=== PATIENT | female | born 1935 | race Hispanic/Latino ===

== ENCOUNTER 2024-10-13 12:08 | Emergency (ER) | payer OTHER ==
[2024-10-13 12:40] LABS: Absolute Eosinophils 0.2 K/uL (0-0.5); Absolute Monocytes 0.5 K/uL (0.1-1.3); Absolute Neutrophil 3.3 K/uL (1.8-8.0); Basophils % 0.7 % (0-1.3); Eosinophils % 2.2 % (0-4.4); Hematocrit 46.2 % (36.0-45.0); Lymphocytes % 43.5 % (15.3-44.8); MCH 30.9 pg (27.0-35.0); MCHC 32.5 g/dL (32.0-36.0); Monocytes % 6.7 % (3.3-12.3); Neutrophils % 46.9 % (41.7-73.7); Platelets 197 thou/uL (152-406); RBC Red Blood Cell Count 4.87 M/uL (3.86-4.86); Red Cell Distribution Width 14.9 % (12.1-15.2)
[2024-10-13 12:46] LABS: PT Prothrombin Time 11.4 SECONDS (9.4-12.5); PTT, Activated Partial Thromb 35.1 SECONDS (24.3-36.9); Protime INR 1.02
--- NOTE | 2024-10-13 13:16 | RAD REPORT ---
EXAMINATION: ONE VIEW CHEST XR CLINICAL INDICATION: Female, 89 years old.,code stroke TECHNIQUE: Frontal chest projection is submitted. Examination is limited by patient positioning and t echnique. COMPARISON: No prior exam. FINDINGS: The lungs are somewhat hypoinflated, and clear. No pneumothorax or sizable effusion. The heart is no rmal in size. Tortuosity of the thoracic aorta. IMPRESSION: No acute intrathoracic abnormalities.
[2024-10-13] MEDS ORDERED: DIAZEPAM 2 MG TABLET ONE (13:54)
--- NOTE | 2024-10-13 14:00 | RAD REPORT ---
EXAM: CT Ct Stroke Brain Wo Cont HISTORY: STROKE ALERT COMPARISON: None TECHNIQUE: Multiple contiguous axial images were obtained for a CT of the brain without contrast. Sag ittal and coronal reformats were performed. One or more of the following dose reduction techniques were used: Automated exposure control, adjus tment of the mA and kV according to patient size, and iterative reconstruction. Unless otherwise specified, incidental findings do not require dedicated imaging follow-up. FINDINGS: No evidence of hydrocephalus, intracranial hemorrhage, or extra-axial fluid collection. Extensive encephalomalacia involving the left cerebral hemisphere within the left MCA territory, most pronounced along the left parietotemporal region. Ex vacuo left lateral ventricle dilation. Near confluent reticular and deep white matter hypodensities otherwise, nonspecific, but suggestive o f chronic small vessel ischemic changes. The calvarium is intact. The visualized paranasal sinuses and mastoid air cells are essentially clear . 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 No other acute intracranial abnormality. Deep white matter signal abnormalities as above, nonspecific , most suggestive of chronic small vessel ischemic changes. THIS REPORT CONTAINS FINDINGS THAT MAY BE CRITICAL TO PATIENT CARE. The findings were verbally commun icated via telephone to Patricio Lorenzo MD on 10/13/2024 1:53 PM.
--- NOTE | 2024-10-13 14:05 | RAD REPORT ---
EXAMINATION: CTA HEAD CLINICAL INDICATION: Female, 89 years old. STROKE ALERT TECHNIQUE: Axial CT images were obtained through the head after intravenous contrast utilizing angiog raphic protocol with 3D post-processing (maximum intensity projection images, volume rendered images and/or shaded surface rendered images). One or more of the following dose reduction technique s were used: Automated exposure control, adjustment of the mA and/or kV according to patient size, and/or iterative reconstruction. Unless otherwise specified, incidental findings do not require dedic ated imaging follow-up. COMPARISON: No prior exam. FINDINGS: ICA: The petrous, cavernous, and supraclinoid segments of the bilateral internal carotid arteries are normal. LAKESHA: Anterior cerebral arteries are normal bilaterally. The anterior communicating artery is patent. MCA: Middle cerebral arteries are normal on the right with patent proximal branches. Focal mild narro wing and luminal irregularity along the most distal left M1, with diminutive appearance of the left M1 branches, with no evidence of focal occlusion. M[employer]ER: Posterior cerebral arteries are normal bilaterally. Vertebrobasilar: The vertebral arteries are patent. The basilar artery is normal in appearance. 3D images confirm these findings. IMPRESSION: No evidence of large vessel occlusion or critical stenosis. Chronic appearing findings as above. THIS REPORT CONTAINS FINDINGS THAT MAY BE CRITICAL TO PATIENT CARE. The findings were verbally commun icated via telephone to Patricio Lorenzo MD on 10/13/2024 1:53 PM.
--- NOTE | 2024-10-13 14:10 | RAD REPORT ---
EXAMINATION: CT Neck Angio CLINICAL INDICATION: Female, 89 years old. [facility] MAIN code stroke Bed Name: 6 TECHNIQUE: Axial CT images were obtained from the aortic arch to the skull base after intravenous con trast utilizing angiographic protocol. Multiplanar reformats, as well as 3D post-processing (maximum intensity projection images, volume rendered images and/or shaded surface rendered images) w ere generated and reviewed. One or more of the following dose reduction techniques were used: Automated exposure control, adjustment of the mA and/or kV according to patient size, and/or iterativ e reconstruction. Unless otherwise specified, incidental findings do not require dedicated imaging follow-up. COMPARISON: Stroke workup CTs of the same day FINDINGS: AORTA: The imaged aortic arch is normal. Normal three-vessel configuration of the arch. Predominantly noncalcified atherosclerotic plaque along the proximal left subclavian artery, results in mild luminal stenosis CCA: No artifact The common carotid arteries are patent and normal in caliber. ICA/ECA: Bilateral internal and external carotid arteries are patent. There is no significant interna l carotid artery stenosis. VERTEBRAL: The cervical vertebral arteries are patent to the skull base. Vertebral arteries are codom inant. SOFT TISSUE: No significant neck soft tissue abnormalities. The visualized lung apices are clear. 3D images confirm these findings. IMPRESSION: No significant flow abnormality of the neck vessels is identified. Mild focal narrowing of the proxim al left subclavian artery. NASCET criteria used to quantify ICA stenosis, with the following grading scheme: Mild 0-49% stenosis Moderate 50-69% stenosis Severe 70-99% stenosis Reference: [place] Symptomatic Carotid Endarterectomy Trial Collaborators; Hesham LARA, Azra HARPER, Evgeny RB, et al. Beneficial effect of carotid endarterectomy in symptomatic patients with high-grade carotid stenosis. N Engl J Med. 1990Jun 23;325(7):445-53.
[2024-10-13 14:30] LABS: Anion Gap 5.3 mEq/L (5.0-15.0); Potassium 3.3 mEq/L (3.5-5.1); Troponin High Sensitivity 13.4 pg/mL (<58.9)
--- NOTE | 2024-10-13 15:44 | RAD REPORT ---
EXAMINATION: MRI BRAIN WITHOUT CONTRAST CLINICAL INDICATION: Female, 89 years old.[facility] MAIN N STROKE ALERT Bed Name: 6 TECHNIQUE: Multiplanar multisequence MR images of the brain were obtained without intravenous contras t. Unless otherwise specified, incidental findings do not require dedicated imaging follow-up. COMPARISON: Noncontrast head CT and CT angiogram of the same day FINDINGS: INTRACRANIAL: Midline structures are unremarkable. Diffusion-weighted images show no acute or early subacute infarction. 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 The ventricles are stable in caliber with ex vacuo dilation of the left lateral ventricle particularly at the trigone. Confluent o ther interventricular and deep white matter signal abnormalities bilaterally, most suggestive of chronic small vessel ischemic changes. Atrophic changes of the left cerebral peduncle, midbrain, and calvin, compatible with Wallerian degeneration. There is no mass effect or midline shift. No abnormal extraaxial fluid collection. VASCULATURE: Normal signal voids in the larger intracranial arteries and dural venous sinuses. SINUSES: The paranasal sinuses and mastoid air cells are predominantly clear. BONE: The marrow signal pattern is within normal limits. IMPRESSION: Acute intracranial process. Stable sequelae of remote ischemia in the left MCA territory as above.
[2024-10-13] MEDS ORDERED: NA CHLORIDE 0.9% 1,000 ML ONE (16:01)
[2024-10-13 17:17] LABS: Specific Gravity 1.009 (1.005-1.030); Sqamous Epithelial None Seen /HPF (None Seen); Urine Bacteria None Seen /HPF (<20); Urine Bilirubin NEGATIVE (Negative); Urine Blood Negative (Negative); Urine Clarity Clear (Clear); Urine Color Colorless (Yellow); Urine Culture Reflex Order NOT NEEDED; Urine Glucose NEGATIVE (Negative); Urine Ketones NEGATIVE (Negative); Urine Microscopic Reflex YN ORDER UMIC; Urine Nitrite NEGATIVE (Negative); Urine Protein NEGATIVE (Negative); Urine RBC <5 /HPF (None Seen); Urine Urobilinogen Normal (Normal); Urine WBC <5 /HPF (<5); Urine pH 7.5 (5.0-7.0)
--- NOTE | 2024-10-13 17:46 | ER ---
Nurse's Notes [facility] Name: Lisa Mane Age: 89 yrs Sex: Female : 1935 Arrival Date: 10/13/2024 Time: 12:08 Bed 6 Private MD: Diagnosis: Muscle weakness (generalized);Dehydration Presentation: 10/13 12:16 Chief complaint: EMS states: they were called to [facility] for a patient complaining ap3 of lack of vision in the right eye. Coronavirus screen: At this time, the client does not indicate any symptoms associated with coronavirus-19. Ebola Screen: No symptoms or risks identified at this time. Initial Sepsis Screen: Does the patient meet any 2 criteria? No. Patient's initial sepsis screen is negative. Does the patient have a suspected source of infection? No. Patient's initial sepsis screen is negative. Risk Assessment: Do you want to hurt yourself or someone else? Patient reports no desire to harm self or others. Onset of symptoms is unknown. 12:16 Method Of Arrival: EMS: [facility] ap3 12:16 Acuity: DONTE 2 ap3 Triage Assessment: 12:18 General: Appears in no apparent distress. Behavior is calm, cooperative. EENT: Reports ap3 abnormal vision in right eye. Neuro: Level of Consciousness is awake, alert, obeys commands, Oriented to person, place, Weakness in right arm(s) leg(s) from previous stroke. Cardiovascular: Patient's skin is warm and dry. Respiratory: Airway is patent Respiratory effort is even, unlabored, Respiratory pattern is regular, symmetrical. Historical: - Allergies: 12:18 No Known Allergies; ap3 - PMHx: 12:18 Hypercholesterolemia; Depressive disorder; Hypertensive disorder; Hypothyroidism; ap3 restless leg syndrome; Osteoporosis; cognitive communication deficit; expressive language disorder; - Immunization history:: Adult Immunizations unknown. - Infectious Disease History:: Denies. - Social history:: Smoking status: unknown. - Family history:: not pertinent. - Hospitalizations: : No recent hospitalization is reported. Screenin:21 Abuse screen: Denies threats or abuse. Nutritional screening: No deficits noted. ap3 Tuberculosis screening: No symptoms or risk factors identified. 13:03 [place] Swallow Protocol Brief Cognitive Screen What is your name? Normal, Where are you ap3 right now? Normal, What year is it? Normal. Oral Mechanism Examination Facial Symmetry: Normal, Motion: Normal, Lip Closure: Normal, Oral Mechanism Result: Normal. 3 oz Water Swallow Challenge: Pt able to drink all water without stopping, coughing, choking or throat clearing: Yes Result: SAMANTHA MALLOY Notified: Patricio Lorenzo MD. 17:12 [facility] ED Fall Risk Assessment (Adult) History of falling in the last 3 months, ph including since admission Yes- fall prone (multiple falls) (3 pts) Confusion or Disorientation Yes (5 pts) Intoxicated or Sedated No (0 pts) Impaired Gait Yes (1 pt) Mobility Assist Device Used Yes (1 pt) Altered Elimination Score/Fall Risk Level 3 or more points = High Risk Oriented to surroundings, Maintained a safe environment, Hourly rounding (assess needs \T\ fall precautionary measures) done, Used ambulatory aids as needed (educated on \T\ assisted with). Assessment: 14:03 General: daughter at bedside reports patient was complaining of vision changes and ap3 dizziness yesterday, 10/12/24, at approx 1730 when she was visiting the patient in her facility. . 15:11 Reassessment: Patient and/or family updated on plan of care and expected duration. Pain ap3 level reassessed. Patient is alert, oriented x 3, equal unlabored respirations, skin warm/dry/pink. 19:10 General: Appears in no apparent distress. Behavior is calm, cooperative. Pain: Denies al5 pain. Neuro: Level of Consciousness is awake, alert, obeys commands, Oriented to baseline. Cardiovascular: Patient's skin is warm and dry. Respiratory: Airway is patent Respiratory effort is even, unlabored, Respiratory pattern is regular, symmetrical. GI: No deficits noted. : No signs and/or symptoms were reported regarding the genitourinary system. EENT: No signs and/or symptoms were reported regarding the EENT system. Derm: No signs and/or symptoms reported regarding the dermatologic system. Musculoskeletal: right sided weakness from previous stroke. Vital Signs: 12:16 BP 183 / 81; Pulse 77; Resp 18; Pulse Ox 98% on R/A; Weight 61.5 kg; ap3 12:49 BP 172 / 81; Pulse 62; Pulse Ox 97% on R/A; ap3 15:11 BP 160 / 73; Pulse 60; Resp 17; Pulse Ox 95% on R/A; ap3 19:00 BP 160 / 76; Pulse 80; Resp 16; Pulse Ox 95% on R/A; al5 ED Course: 12:16 Patient arrived in ED. rn 12:16 Patricio Lorenzo MD is Attending Physician. rn 12:16 Yenifer Long, JER is Primary Nurse. ap3 12:18 Triage completed. ap3 12:21 Arm band placed on right wrist. ap3 12:21 Patient has correct armband on for positive identification. Bed in low position. Call ap3 light in reach. Side rails up X2. Provided Education on: call light education. Client placed on continuous cardiac and pulse oximetry monitoring. NIBP monitoring applied. cook chief on. Pulse ox on. NIBP on. Sitter at bedside. 12:48 Initial lab(s) drawn, by me, sent to lab. EKG done, by ED staff, reviewed by Patricio Lorenzo MD. Inserted saline lock: 22 gauge in right forearm, using aseptic technique. Blood collected. Flushed with 10 mL NS. 13:00 Stroke CXR 1 View In Process Unspecified. EDMS 13:44 CT Head Angio In Process Unspecified. EDMS 13:44 CT Neck Angio In Process Unspecified. EDMS 13:44 CT Stroke Brain w/o Contrast In Process Unspecified. EDMS 14:42 MRI - Brain Wo Cont In Process Unspecified. EDMS 17:11 Speci-cath kit inserted, using sterile technique, 14 Fr., returned clear yellow urine. ph Patient tolerated poorly. 17:13 No provider procedures requiring assistance completed. ph 17:19 IV discontinued, intact, bleeding controlled, No redness/swelling at site. Pressure ph dressing applied. Administered Medications: 14:04 Drug: Diazepam PO 2 mg PO once Route: PO; ap3 16:04 Follow up: Response: No adverse reaction ap3 16:03 Drug: NS 0.9% IV 500 ml 500 ml IV at 1 bolus once; to be given as a bolus over 30 ap3 minutes Volume: 500 ml; Route: IV; Rate: 1 bolus; Site: right forearm; 16:35 Follow up: Response: No adverse reaction; IV Status: Completed infusion; IV Intake: ph 500ml Medication: 17:13 VIS not applicable for this client. ph Intake: 16:35 IV: 500ml; Total: 500ml. ph Outcome: 17:44 Discharge ordered by . rn 19:11 Discharged to detention. patient taken back to detention with daughter with al5 discharge instructions. report called back to detention prior to shift change 19:11 Condition: good 19:11 Discharge instructions given to family, Instructed on discharge instructions, follow up and referral plans. Demonstrated understanding of instructions, follow-up care, 19:13 Patient left the ED. al5 Signatures: Dispatcher [employer] EDMS Patricio Lorenzo MD MD rn Hall, Patricia RN RN ph [facility], JER Street RN ap3 Yenifer Hedrick RN RN al5 Corrections: (The following items were deleted from the chart) 17:20 17:19 Condition: good ph ph 17:20 17:19 Discharged to home ambulatory, with family, ph ph 17:20 17:19 Discharge instructions given to patient, Instructed on discharge instructions, ph follow up and referral plans. medication usage, Demonstrated understanding of instructions, follow-up care, medications, Prescriptions given X 1, ph
--- NOTE | 2024-10-13 17:46 | EDPHYS ---
Physician Documentation [facility] Name: Lisa Mane Age: 89 yrs Sex: Female : 1935 Arrival Date: 10/13/2024 Time: 12:08 Bed 6 Private MD: ED Physician Patricio Lorenzo HPI: 10/13 15:34 This 89 yrs old Female presents to ER via EMS with complaints of Vision rn Problem, confusion. 15:34 The patient presents with confusion, decreased responsiveness. Onset: The rn symptoms/episode began/occurred yesterday. Associated signs and symptoms: Pertinent negatives: abdominal pain, chest pain, headache, seizure, shortness of breath. Current symptoms: In the emergency department the patient's symptoms are unchanged from the initial presentation. The patient has not experienced similar symptoms in the past. The patient has not recently seen a physician. [facility] from [facility], report was that she was having vision trouble since yesterday. Patient reports that she has had vision trouble out of her right eye for some time and this is not a new problem. 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 No trauma or fall. No fever or chills. No chest pain or abdominal pain. Patient states she feels okay. Family confirms that was seen yesterday and symptoms of dizziness and lightheaded were noted yesterday.. Historical: - Allergies: 12:18 No Known Allergies; ap3 - PMHx: 12:18 Hypercholesterolemia; Depressive disorder; Hypertensive disorder; Hypothyroidism; ap3 restless leg syndrome; Osteoporosis; cognitive communication deficit; expressive language disorder; - Immunization history:: Adult Immunizations unknown. - Infectious Disease History:: Denies. - Social history:: Smoking status: unknown. - Family history:: not pertinent. - Hospitalizations: : No recent hospitalization is reported. ROS: 15:34 Constitutional: Negative for fever, chills, and weight loss, Eyes: Negative for injury, rn pain, redness, and discharge, Neck: Negative for injury, pain, and swelling, Cardiovascular: Negative for chest pain, palpitations, and edema, Respiratory: Negative for shortness of breath, cough, wheezing, and pleuritic chest pain, Abdomen/GI: Negative for abdominal pain, nausea, vomiting, diarrhea, and constipation, Back: Negative for injury and pain, MS/Extremity: Negative for injury and deformity, Skin: Negative for injury, rash, and discoloration, Neuro: Negative for headache, and seizure, Exam: 15:34 Constitutional: This is a well developed, well nourished patient who is awake, alert, rn and in no acute distress. Head/Face: Normocephalic, atraumatic. Eyes: Bilateral cataracts, pupils equally round and reactive to light ENT: Dry mucous membranes Cardiovascular: Regular rate and irregular rhythm. No pulse deficits. Respiratory: No increased work of breathing, no retractions or nasal flaring. Abdomen/GI: Soft, non-tender MS/ Extremity: Pulses equal, no cyanosis. Neurovascular intact. Full, normal range of motion. Equal circumference. Neuro: Awake and alert, GCS 15, very difficult to understand secondary to dysphasia from previous stroke 16:03 ECG was reviewed by the Attending Physician. rn Vital Signs: 12:16 BP 183 / 81; Pulse 77; Resp 18; Pulse Ox 98% on R/A; Weight 61.5 kg; ap3 12:49 BP 172 / 81; Pulse 62; Pulse Ox 97% on R/A; ap3 15:11 BP 160 / 73; Pulse 60; Resp 17; Pulse Ox 95% on R/A; ap3 19:00 BP 160 / 76; Pulse 80; Resp 16; Pulse Ox 95% on R/A; al5 MDM: 12:16 Medical Screening Exam initiated rn 13:51 ED course: Last known normal per facility and family was last night prior to going to rn bed.. 13:53 ED course: Dr. Deleon called, states CT head negative for acute infarct or LVO.. rn 17:41 Differential Diagnosis: CVA, electrolyte abnormality, hypoglycemia, pneumonia, UTI, rn volume depletion. Data reviewed: vital signs, nurses notes, lab test result(s), EKG, radiologic studies, CT scan, MRI, and as a result, I will discharge patient. Counseling: I had a detailed discussion with the patient and/or guardian regarding the historical points, exam findings, and any diagnostic results supporting the discharge/admit diagnosis, lab results, radiology results, the need for outpatient follow up, to return to the emergency department if symptoms worsen or persist or if there are any questions or concerns that arise at home. Response to treatment: the patient's symptoms have markedly improved after treatment, and as a result, I will discharge patient. Special discussion: I discussed with the patient/guardian in detail that at this point there is no indication for admission to the hospital. It is understood, however, that if the symptoms persist or worsen the patient needs to return immediately for re-evaluation. ED course: Patient improved, MRI negative, CT angiograms negative for LVO or stroke. No UTI. Labs otherwise unremarkable for acute pathology. Will discharge home with return precautions.. 10/13 12:16 Order name: Basic Metabolic Panel; Complete Time: 14:56 rn 10/13 12:16 Order name: CBC with Diff; Complete Time: 13:24 rn 10/13 12:16 Order name: High Sensitivity Troponin; Complete Time: 14:56 rn 10/13 12:16 Order name: Protime (+inr); Complete Time: 13:24 rn 10/13 12:16 Order name: Ptt, Activated; Complete Time: 13:24 rn 10/13 14:03 Order name: CREATININE WHOLE BLOOD; Complete Time: 14:17 EDMS 10/13 15:49 Order name: Urinalysis w/ reflexes; Complete Time: 17:18 rn 10/13 12:16 Order name: CT Head Angio; Complete Time: 14:17 rn 10/13 12:16 Order name: CT Neck Angio; Complete Time: 14:17 rn 10/13 12:16 Order name: CT Stroke Brain w/o Contrast; Complete Time: 14:17 rn 10/13 12:16 Order name: Stroke CXR 1 View; Complete Time: 13:24 rn 10/13 12:16 Order name: MRI - Brain Wo Cont; Complete Time: 15:49 rn 10/13 12:16 Order name: Accucheck; Complete Time: 13:36 rn 10/13 12:16 Order name: Cardiac monitoring; Complete Time: 12:22 rn 10/13 12:16 Order name: EKG - Nurse/Tech; Complete Time: 12:49 rn 10/13 12:16 Order name: IV Saline Lock; Complete Time: 12:49 rn 10/13 12:16 Order name: Labs collected and sent; Complete Time: 12:49 rn 10/13 12:16 Order name: NPO; Complete Time: 12:22 rn 10/13 12:16 Order name: O2 Per Protocol; Complete Time: 12:22 rn 10/13 12:16 Order name: O2 Sat Monitoring; Complete Time: 12:22 rn 10/13 12:16 Order name: Stroke Swallow Screen; Complete Time: 13:03 rn 10/13 13:10 Order name: Labs - recollect needed: recollect green top; Complete Time: 14:04 bd EC:03 Rate is 64 beats/min. Rhythm is irregularly irregular. QRS [place] is Normal. PA interval rn is normal. QRS interval is normal. QT interval is normal. No Q waves. T waves are Normal. No ST changes noted. Clinical impression: Atrial Fibrillation. Interpreted by me. Reviewed by me. Administered Medications: 14:04 Drug: Diazepam PO 2 mg PO once Route: PO; ap3 16:04 Follow up: Response: No adverse reaction ap3 16:03 Drug: NS 0.9% IV 500 ml 500 ml IV at 1 bolus once; to be given as a bolus over 30 ap3 minutes Volume: 500 ml; Route: IV; Rate: 1 bolus; Site: right forearm; 16:35 Follow up: Response: No adverse reaction; IV Status: Completed infusion; IV Intake: ph 500ml Disposition Summary: 10/13/24 17:44 Discharge Ordered Notes: Location: Home rn Problem: new rn Symptoms: have improved rn Condition: Stable rn Diagnosis - Muscle weakness (generalized) rn - Dehydration rn Followup: rn - With: Private Physician - When: As needed - Reason: Recheck today's complaints, Re-evaluation by your physician Discharge Instructions: - Discharge Summary Sheet rn - Dehydration, Elderly rn - Weakness rn Forms: - Medication Reconciliation Form rn - Antibiotic returns clerk - Prescription Opioid Use rn - Patient Portal Instructions rn - Leadership Thank You Letter rn Signatures: Dispatcher [employer] EDKY Olive Dejesus Roman, MD MD rn Prokisch, Amanda, RN RN ap3 Maggie Bustos RN ph Corrections: (The following items were deleted from the chart) 12:17 12:17 BASIC METABOLIC PANEL+C.LAB.BRZ ordered. EDMS EDMS 12:17 12:17 CBC+H.LAB.BRZ ordered. EDMS EDMS 12:17 12:17 Troponin High Sensitivity+C.LAB.BRZ ordered. EDMS EDMS 12:17 12:17 PROTIME (+INR)+COAG.LAB.BRZ ordered. EDMS EDMS 12:17 PTT, ACTIVATED+COAG.LAB.BRZ ordered. EDMS EDMS 12: 12:17 Head Angio+CT.RAD.BRZ ordered. EDMS EDMS 12: 12:17 Neck Angio+CT.RAD.BRZ ordered. EDMS EDMS 12: 12:17 CT-STROKE BRAIN W/O CONTRAST+CT.RAD.BRZ ordered. EDMS EDMS 12: 12:17 Chest Single View+RAD.RAD.BRZ ordered. EDMS EDMS 12: 12:17 Brain Wo Cont+MRI.RAD.BRZ ordered. EDMS EDMS 16:03 15:34 Constitutional: This is a well developed, well nourished patient who is awake, rn alert, and in no acute distress. Head/Face: Normocephalic, atraumatic. Eyes: Bilateral cataracts, pupils equally round and reactive to light ENT: Dry mucous membranes Cardiovascular: Regular rate and rhythm. No pulse deficits. Respiratory: No increased work of breathing, no retractions or nasal flaring. Abdomen/GI: Soft, non-tender MS/ Extremity: Pulses equal, no cyanosis. Neurovascular intact. Full, normal range of motion. Equal circumference. Neuro: Awake and alert, GCS 15, very difficult to understand secondary to dysphasia from previous stroke rn
[2024-10-14 01:30] VITALS: O2SAT 95
[2024-10-14 01:31] VITALS: BP 160/76
== END 2024-10-13 19:13 | disposition home or self-care (01) ==
LOC: ER 12:08
DX: M62.81 Muscle weakness (generalized) (principal); E86.0 Dehydration; R41.0 Disorientation, unspecified; H54.61 Unqualified visual loss, right eye, normal vision left eye; I10 Essential (primary) hypertension; E78.00 Pure hypercholesterolemia, unspecified
CPT/HCPCS: 85025; 81001; 80048; 36415; 85610; 82565; 85730; 84484; 70496; 70498; 70450; 71045; 70551; 96360; 99285; Q9967; J7030

== ENCOUNTER 2025-01-06 19:27 | Emergency (ER) | payer OTHER ==
--- OUTSIDE RECORDS SUMMARY | 2025-01-06 19:31 | XMS REPORT | Continuity of Care Document ---
Author Name Unknown Address [address] [facility] [address] [place] [address] [facility] thconnect Address [address] [facility] [address] [address] [place] [address] Care Team Providers Care Wheel Assembler Name Role Phone CRUZ_MICKY_Jesus_S Attending Clinician Unavailable KUMAR BOWEN Attending Clinician Unavailable Chantal Lee Attending Clinician [phone] KELTON MCBRIDE Attending Clinician Unavailable DR MARKOS MCBRIDE Attending Clinician Unavailable GC_ANAMARIAW_Vogel_S Admitting Clinician Unavailable DR KELTON MCBRIDE Admitting Clinician Unavailable DR MARKOS MCBRIDE Admitting Clinician Unavailable Payers Payer Name Policy Type Policy Number Effective Date Expirati on Date Source [employer] [place] (MEDICARE REPLACEMENT/ADVANT AGE - HMO) [id number] 2015 00:00:00 [id number] 2020 00:00:00 Problems Condition Name Condition Details Condition Category Status Onset Date Resolution Date Last Treatment Date Treating Clinician Comments Source Mood disorder Mood Disorder Problem Active 07-08 00:00: 00 [facility] Hemiplegia and/or hemiparesi s following stroke Hemiplegia And/or Hemiparesi s Following Stroke Problem Active 8-30 00:00: 00 [facility] Vitamin B12 deficiency (non anemic) Vitamin B12 Deficiency (Non Anemic) Problem Active 3- 00:00: 00 [facility] Right hemiplegia Right Hemiplegia Problem Active 3- 00:00: 00 [facility] Fatigue Fatigue Problem Active 3- 00:00: 00 [facility] COVID-19 Covid-19 Problem Active 7-15 00:00: 00 [facility] Osteoporos is Osteoporos is Problem Active 3-08 00:00: 00 [facility] 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 308 00:00: 00 [facility] 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 Active 3-08 00:00: 00 [facility] Vitamin D deficiency Vitamin D Deficiency Problem Active 3-08 00:00: 00 [facility] Hypertensi ve disorder Hypertensi ve Disorder Problem Active 2020-11 0-20 00:00: 00 [facility] 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 Ordering Clinician Indication Dosage Frequency Signature (SIG) Comments Components Source Vitamin C ER 1,000 mg tablet,exte nded release Vitamin C ER 1,000 mg tablet,exte nded release 06-10 00:00: 00 No Vitamin C ER 1,000 mg tablet,ext ended release [facility] cholecalcif vj (vitamin D3) 50 mcg (2,000 unit) capsule TAKE 1 CAPSULE BY MOUTH EVERY WEEK DIRECTED cholecalcif vj (vitamin D3) 50 mcg (2,000 unit) capsule TAKE 1 CAPSULE BY MOUTH EVERY WEEK DIRECTED 06-10 00:00: 00 No cholecalci ferol (vitamin D3) 50 mcg (2,000 unit) capsule TAKE 1 CAPSULE BY MOUTH EVERY WEEK DIRECTED [facility] baclofen 10 mg tablet TAKE 1 TABLET BY MOUTH THREE TIMES DAILY WITH FOOD OR MILK baclofen 10 mg tablet TAKE 1 TABLET BY MOUTH THREE TIMES DAILY WITH FOOD OR MILK No 1 TID baclofen 10 mg tablet TAKE 1 TABLET BY MOUTH THREE TIMES DAILY WITH FOOD OR MILK [facility] clopidogrel 75 mg tablet Take 1 tablet every day by oral route for 90 days. clopidogrel 75 mg tablet Take 1 tablet every day by oral route for 90 days. No 1 Q1D clopidogre l 75 mg tablet Take 1 tablet every day by oral route for 90 days. [facility] duloxetine 60 mg capsule,del ayed release TAKE 1 CAPSULE BY MOUTH EVERY DAY duloxetine 60 mg capsule,del ayed release TAKE 1 CAPSULE BY MOUTH EVERY DAY No duloxetine 60 mg capsule,de layed release TAKE 1 CAPSULE BY MOUTH EVERY DAY [facility] gabapentin 800 mg tablet Take 1 tablet 3 times a day by oral route for 81 days. gabapentin 800 mg tablet Take 1 tablet 3 times a day by oral route for 81 days. No 1 TID gabapentin 800 mg tablet Take 1 tablet 3 times a day by oral route for 81 days. [facility] levothyroxi ne 75 mcg tablet TAKE 1 TABLET BY MOUTH EVERY DAY ON AN EMPTY STOMACH FOR 1 HOUR FOR HYPOTHYROID ISM levothyroxi ne 75 mcg tablet TAKE 1 TABLET BY MOUTH EVERY DAY ON AN EMPTY STOMACH FOR 1 HOUR FOR HYPOTHYROID ISM No levothyrox ine 75 mcg tablet TAKE 1 TABLET BY MOUTH EVERY DAY ON AN EMPTY STOMACH FOR 1 HOUR FOR HYPOTHYROI DISM [facility] nifedipine ER 30 mg tablet,exte nded release 24 hr Take 1 tablet every day by oral route for 76 days. nifedipine ER 30 mg tablet,exte nded release 24 hr Take 1 tablet every day by oral route for 76 days. No 1 Q1D nifedipine ER 30 mg tablet,ext ended release 24 hr Take 1 tablet every day by oral route for 76 days. [facility] pregabalin 25 mg capsule Take 1 capsule twice a day by oral route for 90 days. pregabalin 25 mg capsule Take 1 capsule twice a day by oral route for 90 days. No 1capsul e(s) BID pregabalin 25 mg capsule Take 1 capsule twice a day by oral route for 90 days. [facility] simvastatin 20 mg tablet TAKE 1 TABLET BY MOUTH EVERY NIGHT AT BEDTIME FOR CHOLESTEROL simvastatin 20 mg tablet TAKE 1 TABLET BY MOUTH EVERY NIGHT AT BEDTIME FOR CHOLESTEROL No simvastati n 20 mg tablet TAKE 1 TABLET BY MOUTH EVERY NIGHT AT BEDTIME FOR CHOLESTERO L [facility] Vital Signs Vital Name Observation Time Observation Value Comments S ource Height 2024-01-19 00:00:00 62 [in_i] [facility] BMI (Body Mass Index) 2024-01-12 00:00:00 27.4 kg/m2 [facility] Height 2024-01-12 00:00:00 62 [in_i] [facility] BP Diastolic 2024-01-12 00:00:00 58 mm[Hg] [facility] BP Systolic 2024-01-12 00:00:00 96 mm[Hg] [facility] Body Weight 2024-01-12 00:00:00 2400 [oz_av] [facility] BP Diastolic 2023-01-07 00:00:00 70 mm[Hg] [facility] Height 2023-01-07 00:00:00 62 [in_i] [facility] BMI (Body Mass Index) 2023-01-07 00:00:00 27.4 kg/m2 [facility] BP Systolic 2023-01-07 00:00:00 132 mm[Hg] [facility] Body Weight 2023-01-07 00:00:00 2400 [oz_av] [facility] BP Diastolic 2022-01-14 00:00:00 70 mm[Hg] [facility] BP Systolic 2022-01-14 00:00:00 100 mm[Hg] [facility] Encounters Start Date/Time End Date/Time Encounter Type Admission Type Attending Clinicians Care Facility Care Department Encounter ID Source 2020-04-24 16:15:00 Inpatient HCAIL TERS [id number] [facility] are [facility] 2024-03-11 00:00:00 2024-03-11 00:00:00 CATHRYN Ivan: [id number], [address], [place] [address] , Ph. [facility] - [facility]_ [address] Office* [id number] [facility] 2024-01-19 00:00:00 2024-01-19 00:00:00 CATHRYN Ivan: [id number], [address], [place] [address] , Ph. [facility] - [facility] [address] Office* [id number] [facility] 2024-01-15 00:00:00 2024-01-15 00:00:00 Outpatient GC_MHW_Voge l_S PRIV PRIV [id number] [facility] 2024-01-12 00:00:00 2024-01-12 00:00:00 Outpatient GC_MHW_Voge l_S PRIV PRIV [id number] [facility] 2024-01-12 00:00:00 2024-01-12 00:00:00 Chantal Lee MD: [id number], [address], [place] [address] , Ph. [facility] - [facility] [address] Office* [id number] [facility] 2024-01-11 00:00:00 2024-01-11 00:00:00 Outpatient GC_MHW_Voge l_S PRIV PRIV [id number] [facility] 2023-07-28 13:57:00 2023-07-28 16:57:00 Emergency E LE, KUMAR [facility] [id number] [address] [place] [address] 2023-05-26 00:00:00 2023-05-26 00:00:00 Outpatient GC_MHW_Voge l_S PRIV PRIV [id number] [facility] 2023-01-07 00:00:00 2023-01-07 00:00:00 Chantal Lee MD: [id number], [address], [place] [address] , Ph. [facility] [address] Office* [id number] [facility] 2023-01-01 00:00:00 2023-01-01 00:00:00 Outpatient GC_MHW_Voge l_S PRIV PRIV [id number] [facility] 2023-01-01 00:00:00 2023-01-01 00:00:00 Outpatient GC_MHW_Voge l_S PRIV PRIV [id number] [facility] 2023-01-01 00:00:00 2023-01-01 00:00:00 Outpatient GC_MHW_Voge l_S PRIV PRIV [id number] [facility] 2022-01-14 02:20:00 2022-01-14 02:20:00 Outpatient GC_MHW_Voge l_S PRIV PRIV [id number] [facility] 2022-01-14 00:00:00 2022-01-14 00:00:00 Outpatient Chantal Lee [facility] [id number] 2022-01-14 00:00:00 2022-01-14 00:00:00 Chantal Lee MD: [id number], [address], [place] [address] , Ph. [facility] - [facility] [address] Office [id number] [facility] 2020-11-16 12:30:00 2020-11-16 23:59:00 Outpatient [place] [facility] [id number] [facility] 2020-11-16 10:33:00 2020-11-16 10:33:00 Outpatient [place] [facility] [place] [id number] [facility] 2020-08-24 10:35:00 2020-11-16 10:32:00 Out[place] [facility] [place] [id number] [facility] 2020-08-24 12:38:00 2020-08-24 23:59:00 Outpatient [place] [facility] [id number] [facility] 2020-08-24 11:50:00 2020-08-24 23:59:00 Outpatient [place] [facility]RA[place] [facility] [id number] [facility] 2019-07-21 15:18:00 2019-07-21 15:18:00 Emergency E MHCY MHCY 7506 [facility] Results Test Description Test Time Test Comments Results Result Co mments Source [facility]em[facility] A1c/Hemoglobin.total in [id number] 00:00:00* Test Item Value Reference Range Interpretation Comme nts Hemoglobin A1c/Hemoglobin.to katina in Blood (test code = 4548-4) 5.7 % <5.7 [facility] 1995 panel - Serum or [id number] 00:00:00* Test Item Value Reference Range Interpretation Comme nts cholesterol (test code = cholesterol) 161 mg/dL 0-200 triglycerides (test code = triglycerides) 105 mg/dL 10-150 HDL cholesterol (test code = HDL cholesterol) 79 mg/dL >50 HDL risk factor (test code = HDL risk factor) 2.0 calc. VLDL cholesterol (test code = VLDL cholesterol) 21 calc Cholesterol in LDL [Mass/vol ume] in Serum or Plasma (test code = 2089-1) 59 mg/dL <100 [facility] MedicalThyrotropin [Units/volume] in Serum or [id number] 00:00:00* Test Item Value Reference Range Interpretation Comme nts TSH (test code = TSH) 2.330 uIU/mL 0.178-4.530 [facility] MedicalComprehensive metabolic 2000 panel - Serum or [id number] 00:00:00* Test Item Value Reference Range Interpretation Comme nts sodium (test code = sodium) 142 mmol/L 136-145 potassium (test code = potassium) 3.5 mmol/L 3.5-5.5 chloride (test code = chloride) 100 mmol/L 98-107 CO2 (test code = CO2) 28 mmol/ L 23-31 glucose (test code = glucose) 106 mg/dL 70-99 H BUN (test code = BUN) 6 mg/dL 6-20 creatinine (test code = creatinine) 0.6 mg/dL 0.5-0.9 calcium (test code = calcium) 10.0 mg/dL 8.6-10.4 total protein (test code = total protein) 7.4 g/dL 6.0-8.3 albumin (test code = albumin) 4.1 g/dL 3.5-5.2 total bilirubin (test code = total bilirubin) 0.3 mg/dL 0.0-1.2 alkaline phosphatase (test code = alkaline phosphatase) 106 U/L 44-147 AST (SGOT) (test code = AST (SGOT)) 25 U/L 0-32 ALT (SGPT) (test code = ALT (SGPT)) 15 U/L 0-33 globulin (test code = globulin) 3.3 g/dL 1.7-3.7 A/G ratio (test code = A/G ratio) 1.2 calc. 1.1-2.9 BUN/creatinine ratio (test code = BUN/creatinine ratio) 10.0 calc 10.0-28.0 eGFR non- (test code = eGFR non-) 85.775 mL/min/1.73A? >60.000 eGFR (test code = eGFR ) 102.930 mL/min/1.73A? >60.000 [facility] Medical[facility]/SKIN/ABS.&GRAMSTAIN [id number] 10:07:00* Test Item Value Reference Range Interpretation Comme nts Culture Observations (test code = COB1) NORMAL SKIN MASTER Direct Exam (test code = DE1) FEW EPITHELIAL CELLS SEEN Direct Exam (test code = DE2) FEW GRAM NEGATIVE KIRSTIE A Direct Exam (test code = DE3) FEW GRAM POSITIVE COCCI Isolate 1 (test code = ISO1) Providencia rettgeri A ampicillin (test code = am) ug/mL R piperacillin/tazobactam (test code = tzp) ug/mL S ceftazidime (test code = elbert) ug/mL S ceftriaxone1 (test code = ctr) ug/mL S cefepime (test code = fep) ug/mL S aztreonam (test code = azm) ug/mL S meropenem (test code = mem) ug/mL S gentamicin (test code = gm) ug/mL S tobramycin (test code = tob) ug/mL S levofloxacin (test code = lev) ug/mL S trimethoprim/sulfametho xazole (test code = sxt) ug/mL S Isolate 2 (test code = ISO2) Escherichia coli A ampicillin (test code = am) ug/mL S piperacillin/tazobactam (test code = tzp) ug/mL S ceftazidime (test code = elbert) ug/mL S ceftriaxone1 (test code = ctr) ug/mL S cefepime (test code = fep) ug/mL S aztreonam (test code = azm) ug/mL S ertapenem (test code = etp) ug/mL S meropenem (test code = mem) ug/mL S gentamicin (test code = gm) ug/mL S tobramycin (test code = tob) ug/mL S levofloxacin (test code = lev) ug/mL S trimethoprim/sulfametho xazole (test code = sxt) ug/mL S WOUND/SKIN/ABS.&GRAMSTAIN [id number] 09:47:00* Test Item Value Reference Range Interpretation Comme nts Culture Observations (test code = COB1) NORMAL SKIN MASTER Direct Exam (test code = DE1) FEW WBC'S Direct Exam (test code = DE2) MANY GRAM POSITIVE KIRSTIE A Direct Exam (test code = DE3) FEW GRAM POSITIVE COCCI Isolate 1 (test code = ISO1) Enterococcus faecalis A ampicillin (test code = am) ug/mL S gentamycin high level (test code = hlg) ug/mL S streptomycin high level (test code = hls) ug/mL S erythromycin (test code = e) ug/mL I linezolid (test code = lnz) ug/mL S daptomycin (test code = dap) ug/mL S vancomycin (test code = va) ug/mL S doxycycline (test code = dx) ug/mL I [id number] 12:52:00* Test Item Value Reference Range Interpretation Comme nts Hb A1C % (test code = HBA) 5.9 % 3.8-6.4 A1C % (test code = A1C) HbA1c (% ) Reference Range Normal <5.7 Prediabetes 5.7-6.4 Diabetic >=6.5 COMPREHENSIVE METABOLIC [id number] 12:47:00* Test Item Value Reference Range Interpretation Comme nts GLUCOSE (test code = 06D) 105 mg/dL 75-100 H SODIUM (test code = 01A) 141 mmol/L 136-145 POTASSIUM (test code = 01B) 3.6 mmol/L 3.6-5.1 CHLORIDE (test code = 04A) 106 mmol/L 98-107 CO2 (test code = 02A) 33 mmol/L 22-32 H ANION GAP (test code = ANG) 5.6 mmol/L BUN (test code = 05D) 4 mg/dL 7-18 L CREATININE (test code = 03E) 0.4 mg/dL 0.4-1.1 GFR (test code = GFR) 93 mL/min/1.73m\S\2 >=90 GFR (test code = GFRAA) 108 mL/min/1.73m\S\2 >=90 EGFR (test code = EGFR) eGFR BY CKD-EPI CALCULATION IS NOT RECOMMENDED FOR PATIENTS UNDER 18 YEARS OF AGE. BUN/CREA (test code = BCR) 9 12-20 L CALCIUM (test code = 09D) 9.3 mg/dL 8.3-9.5 BILI TOTAL (test code = 11A) 0.4 mg/dL 0.2-1.0 PROTEIN (test code = 07D) 8.0 g/dL 6.4-8.2 ALBUMIN (test code = 08D) 3.0 g/dL 3.5-4.8 L GLOBULIN (test code = GLB) 5.0 g/dL 1.5-3.8 H ALB/GLOB (test code = AGRR) 0.6 1.0-2.6 L ALK PHOS (test code = 35A) 66 IU/L 42-121 AST (test code = 30A) 21 IU/L <=42 ALT (test code = 31A) 19 IU/L <=78 [id number] 12:47:00* Test Item Value Reference Range Interpretation Comme nts PREALBUMIN (test code = 08E) 12 mg/dL 18-38 L CBC (INCLUDES AUTOMATED DIFFERENTIAL)2020-08-24 12:32:00* Test Item Value Reference Range Interpretation Comme nts WBC (test code = WBC) 6.2 10\S\3/uL 4.5-11.0 RBC (test code = RBC) 4.13 10\S\6/uL 3.80-5.80 HGB (test code = HBG) 12.6 g/dL 12.0-15.5 HCT (test code = HCT) 39.1 % 35.0-44.0 MCV (test code = MCV) 94.7 fL 81.0-99.0 MCH (test code = MCH) 30.5 pg 27.0-31.0 MCHC (test code = MCHC) 32.2 g/dL 32.0-36.0 RDW (test code = RDW) 14.5 % 11.5-14.5 PLT (test code = PLT) 279 10\S\3/uL 130-400 MPV (test code = MPV) 11.1 fL 9.4-12.4 NEUTROP # (test code = NE#) 3.8 10\S\3/uL 1.6-8.0 LYMPH # (test code = LY#) 1.7 10\S\3/uL 1.1-3.5 MONOCYTE # (test code = MO#) 0.5 10\S\3/uL 0.0-1.1 EOSINOPH # (test code = EO#) 0.1 10\S\3/uL 0.0-0.7 BASOPHIL # (test code = BA#) 0.0 10\S\3/uL 0.0-0.3 IG # (test code = IG#) 0.01 10\S\3/uL 0.00-0.06 NRBC # (test code = NRBC#) 0.00 10\S\3/uL 0.00-0.01 NEUTROPH % (test code = NE%) 62.0 % 35.0-73.0 LYMPH % (test code = LY%) 27.9 % 20.0-55.0 MONO % (test code = MO%) 8.2 % 2.5-10.0 EOSINOPH % (test code = EO%) 1.5 % 0.0-5.0 BASOPHIL % (test code = BA%) 0.2 % 0.0-2.0 IG % (test code = IG%) 0.2 % 0.0-0.8 NRBC% (test code = NRBC%) 0.0 % 0.0-0.2 MANDIFF (test code = MDIFF) NO RBC MORPH (test code = RBCMOR) NORMAL - XR FOOT 3 + V [id number] 17:14:00Patient Name: APPLE JOHNSON Unit No: [id number] EXAMS: CPT CODE: [id number] XR FOOT 3 + V [id number] EXAM: - XR FOOT 3 + V RT HISTORY: Pain. COMPARISON: None available time of interpretation. FIN DINGS: AP, oblique, and lateral view of the right foot is provided. There is diffuse demineralization of the bones. Possible old healed fracture in distal shaft of the 2nd metatarsal. There is no definite acute fracture or malalignment. IMPRESSION: No definite acute osseous abnormality. Electron ically Signed by Nate Cartwright MD on 04/24/2020 at 1714 Reported and signed by: Nate Cartwright MD CC: Nestor Weller MD Technologist: Lesley Grossman [facility] Dt/Tm: 04/24/2020 (1713) by:[email or web address] Electronic Signature Date/Time: 04/24/2020 (1713)Orig Print D/T: S: 04/24/2020 (1716) Name: APPLE JOHNSON [facility] Phys: Nestor Sales MD [address] [facility] : 1935 Age: 84 Sex: [place] [address] Loc: [facility] Exam Date: 04/24/2020 Status: PRE ER PH: FAX: PAGE 1 Signed Report Notes Date/Time Note Provider Source 2020-04-24 17:20:00 [facility] ([facility]) EMERGENCY PROVIDER REPORT REPORT#:[id number] REPORT STATUS: Signed DATE:04/24/20 TIME: 172 PATIENT: RADHA JOHNSON UNIT #: [id number] ROOM: BED: AGE: 84 SEX: F PCP PHYS: Pako Chin MD SERVICE AUTHOR: Nestor Weller MD * ALL edits or amendments must be made on the electronic/computer document * HPI-Foot Prob/Inj General Initial Greet Date/Time 04/24/20 1625 Presentation Chief Complaint Foot injury R Hx Obtained From Daughter Onset Occurred Gradual Symptom Duration Constant Progression since Onset Gradually improving Free Text HPI Notes Free Text HPI Notes pt nonverbal but nonverbally communitive, brought in by daughter who noted redness to dorsum of right foot for past week, no known trauma. no fever cough vomiting other symptoms Review of Systems Free Text ROS Notes Free Text ROS Notes Constitutional: no fever Eyes: No periorbital swelling ENTM: No facial swelling Respiratory: no cough, no respiratory distress Cardiovascular: no skin mottling Gastrointestinal: no vomiting, no diarrhea Genitourinary: no hematuria Musculoskeletal: left foot extremity redness Psychiatric: no change in mood Neurological: no change in mental status Past Medical History - Adult Stated Complaint RIGHT FOOT PAIN Past Medical History: Reports: Ischemic stroke. Pt reports no Fam Hx pert to chief complaint. Alcohol Use Denies EtOH use Drug Use Denies recreational drugs Physical Exam Vital Signs Vital Signs First Documented: Result Date Time Pulse Ox 98 06/ 1630 B/P 113/67 06/16 1630 B/P Mean 82 /16 1630 O2 Delivery Room air 04/24 1630 Temp 36.8 16 1630 Pulse 82 06/16 1630 Resp 16 06/16 1630 Last Documented: Result Date Time Pulse Ox 98 06/16 1630 B/P 113/67 06/16 1630 B/P Mean 82 06/16 1630 O2 Delivery Room air 06/ 1630 Temp 36.8 /16 1630 Pulse 82 06/16 1630 Resp 16 06/16 1630 Review of Vital Signs Reviewed Focused PE General/Const General/Const Awake, Alert, No acute distress, Well appearing, Well developed MS Ankle/Foot Ankle/Foot Full range of motion, No swelling Text/Dict Note mild circular erythema dorsum of foot non tender vascular intact, motor baseline (residual deficit from cva) Skin Skin Atraumatic, No rash, Warm Text/Dict Notes see above Additional PE MS Head Head Atraumatic, Normocephalic Eyes Eyes Atraumatic, EOMI Ears/Nose/Throat Ears/Nose/Throat Atraumatic, Airway patent, Mucous membranes moist, Pharynx NL MS Neck Neck Atraumatic, Supple Resp/Chest Respiratory/Chest Atraumatic, No respiratory distress, No retractions Cardiovascular Cardiovascular Heart rate NL, Peripheral circulation NL Abdomen/GI Abdomen/GI Atraumatic, Soft MS Back Back Atraumatic, Inspection NL MS Upper Extrem Upper Extremity/MS Atraumatic, Inspection NL MS Wrist/Hand Wrist/Hand Atraumatic, Inspection NL Interpretation Diagnostics Lab Results Interpretation Results Recent Impressions: RADIOLOGY - XR FOOT 3 + V RT 04/24 1646 Report Impression - Status: SIGNED Entered: 04/24/2020 1717 IMPRESSION: No definite acute osseous abnormality. Impression By: [email or web address] - Nate Cartwright MD Lab Imaging Statement Laboratory radiographic studies reviewed and considered in the medical decision-making. Re-Evaluation MDM Free Text MDM Notes Free Text MDM Notes circular erythema over dorsum of foot plain films no gross injuries will treat for cellulitis stable for outpt f/u podiatry return precautions given Differential Diagnosis Differential Diagnosis Abrasion, Cellulitis, Contusion, Fx calcaneus, Fx cuboid, Fx cuneiform, Fx distal phalanx, Fx Finn, Fx Lisfranc, Hematoma Patient Discharge Departure Vital Signs/Condition Vital Signs First Documented: Result Date Time Pulse Ox 98 04/24 1630 B/P 113/67 04/24 1630 B/P Mean 82 04/24 1630 O2 Delivery Room air 04/24 1630 Temp 36.8 04/24 1630 Pulse 82 04/24 1630 Resp 16 04/24 1630 Last Documented: Result Date Time Pulse Ox 98 04/24 1630 B/P 113/67 04/24 1630 B/P Mean 82 04/24 1630 O2 Delivery Room air 04/24 1630 Temp 36.8 04/24 1630 Pulse 82 04/24 1630 Resp 16 04/24 1630 All vital signs available at the time of this entry have been reviewed. Clinical Impression Clinical Impression Primary Impression: Foot pain, right Secondary Impressions: Cellulitis Disposition Decision Discharge )( Discharged to Home Yes )( Time 1721 )( Date 04/24/20 Discharge/Care Plan Counseled Regarding Diagnosis, Imaging studies, Need for follow-up, When to return to ED Prescriptions antibiotics Prescriptions Reviewed Risks, Benefits, Alternative treatment Referrals Pako Chin MD (PCP/Family) Discharge Note I have spoken with the patient and/or caregivers. I have explained the patient's condition, diagnoses and treatment plan based on the information available to me at this time. I have answered the patient's and/or caregiver's questions and addressed any concerns. The patient and/or caregivers have as good an understanding of the patient's diagnosis, condition and treatment plan as can be expected at this point. The vital signs have been stable. The patient's condition is stable and appropriate for discharge from the emergency department. The patient will pursue further outpatient evaluation with the primary care physician or other designated or consulting physician as outlined in the discharge instructions. The patient and/or caregivers are agreeable to this plan of care and follow-up instructions have been explained in detail. The patient and/or caregivers have received these instructions in written format and have expressed an understanding of the discharge instructions. The patient and/or caregivers are aware that any significant change in condition or worsening of symptoms should prompt an immediate return to this or the closest emergency department or a call to 911. at 2013 RPT #:[id number] END OF REPORT [facility]
[2025-01-06 20:20] LABS: Absolute Eosinophils 0.1 K/uL (0-0.5); Absolute Lymphocytes (CBC) 1.5 K/uL (0.7-4.9); Absolute Monocytes 0.4 K/uL (0.1-1.3); Basophils % 0.7 % (0-1.3); Eosinophils % 1.4 % (0-4.4); Hematocrit 38.8 % (36.0-45.0); Hemoglobin 13.2 g/dL (12.0-15.0); Lymphocytes % 30.4 % (15.3-44.8); MCHC 34.1 g/dL (32.0-36.0); MPV 9.7 fL (7.6-11.3); Neutrophils % 59.5 % (41.7-73.7); Nucleated Red Blood Cells % 0.1 % (0-0); Platelets 254 thou/uL (152-406); RBC Red Blood Cell Count 4.26 M/uL (3.86-4.86); Red Cell Distribution Width 15.3 % (12.1-15.2)
--- NOTE | 2025-01-06 20:26 | RAD REPORT ---
EXAM: Chest Single View HISTORY: 89 years Female PALPITATIONS COMPARISON: 10/13/2024 FINDINGS: LUNGS/PLEURA: Low lung volumes. This limits evaluation. No definite acute process. CARDIAC/MEDIASTINUM: The cardiac silhouette is within normal limits. UPPER ABDOMEN: No significant abnormality. BONES: No acute abnormality. LINES/TUBES/OTHER: N/A IMPRESSION: Low lung volumes which limits evaluation. No definite acute process. Could consider a standard PA and lateral.
[2025-01-06 20:45] LABS: ALT/SGPT 17 U/L (13-56); AST/SGOT 18 U/L (15-37); Albumin/Globulin Ratio 0.6 (1.1-1.8); Alkaline Phosphatase 103 U/L (45-117); Anion Gap 6.9 mEq/L (5.0-15.0); BUN Blood Urea Nitrogen 9 mg/dL (7-18); Bicarbonate 33 mEq/L (21-32); Bilirubin Total 0.3 mg/dL (0.2-1.0); Glomerular Filtration Rate 89 ml/min (=/>90); Glucose Level 127 mg/dL (74-106); Magnesium 2.1 mg/dL (1.6-2.4); NT PRO-BNP 252 pg/mL (<450); Potassium 2.9 mEq/L (3.5-5.1); Sodium Level 139 mEq/L (136-145); Troponin High Sensitivity 12.9 pg/mL (<58.9)
[2025-01-06 20:46] LABS: Bilirubin Direct < 0.2 mg/dL (0-0.2); Bilirubin Indirect, Calculated 0.1 mg/dL (0.2-0.8)
[2025-01-06 20:49] LABS: PT Prothrombin Time 12.7 SECONDS (10.0-13.0); Protime INR 1.12
--- NOTE | 2025-01-06 20:55 | RAD REPORT ---
EXAMINATION: Head Brain Wo Cont CLINICAL INDICATION: Female, 89 years old.MENTAL STATUS CHANGE TECHNIQUE: Axial CT images from the skull base to the vertex without intravenous contrast. Coronal an d sagittal reformatted images were created from the data set. One or more of the following dose reduction techniques were used: Automated exposure control, adjustment of the mA and/or kV according to patient size, and/or iterative reconstruction. Unless otherwise specified, incidental findings do not require dedicated imaging follow-up. [id number]. COMPARISON: 10/13/2024 FINDINGS: INTRACRANIAL: No acute intracranial hemorrhage. No hydrocephalus. No mass effect or midline shift. La rge remote left MCA territory infarct.Age advanced cerebral atrophy. Moderate to severe chronic small vessel ischemic changes. VASCULATURE: No visualized abnormalities in the arteries or dural venous sinuses. SCALP/SKULL: No calvarial fracture identified. No acute soft tissue abnormality. SINUSES: The visualized paranasal sinuses and mastoid air cells are predominantly clear. No significa nt mastoid fluid. IMPRESSION: No acute intracranial abnormality. Large remote left MCA territory infarct.
[2025-01-06 21:45] LABS: Specific Gravity 1.007 (1.005-1.030); Sqamous Epithelial None Seen /HPF (None Seen); Urine Bacteria None Seen /HPF (<20); Urine Bilirubin NEGATIVE (Negative); Urine Blood Negative (Negative); Urine Clarity Clear (Clear); Urine Color Colorless (Yellow); Urine Crystals Unidentified Few /HPF (None Seen); Urine Culture Reflex Order NOT NEEDED; Urine Glucose NEGATIVE (Negative); Urine Ketones NEGATIVE (Negative); Urine Micro Reflex YN NO BILL MICROSCOPIC; Urine Mucus Slight /HPF (None Seen); Urine Nitrite NEGATIVE (Negative); Urine Protein NEGATIVE (Negative); Urine RBC <5 /HPF (None Seen); Urine Urobilinogen Normal (Normal); Urine WBC <5 /HPF (<5); Urine pH 7.5 (5.0-7.0)
[2025-01-06] MEDS ORDERED: POTASSIUM 25 MEQ EFFERV TAB ONE (21:52)
[2025-01-06 22:03] LABS: Thyroid Stimulating Hormone 0.225 uIU/mL (0.358-3.740)
--- NOTE | 2025-01-06 22:41 | EDPHYS ---
Physician Documentation [facility] Name: Lisa Mane Age: 89 yrs Sex: Female : 1935 Arrival Date: 01/06/2025 Time: 19:27 Bed 16 Private MD: ED Physician Roland Vaca HPI: 01/06 19:34 This 89 yrs old Female presents to ER via Unassigned with complaints of sp3 irregular pulse and altered mental status. 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 EMS does not have degree of hypertension or type of irregularity reported. Limited history from them due to limited history from group home. ROS, history and physical limited secondary to these aspects and patient's cognitive dysfunction. There is 0 meaningful communication from patient.. 21:18 Patient care assumed from Dr. Acevedo. Patient is a very pleasant 89-year-old female from [address] Patient presents with report of irregular heart rate and desaturation at the home. 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 Patient's medications include Myrbetriq, vitamin C, duloxetine, CN plus, baclofen 10 mg daily, valsartan 80 mg daily, gabapentin daily, cholecalciferol daily, mirtazapine 15 mg daily, levothyroxine 100 mcg daily, clopidogrel 75 mg daily, acetaminophen 325 as needed. Patient is full code. Historical: - Allergies: 19:58 No Known Allergies; dd2 - PMHx: 19:58 cognitive communication deficit; depressive disorder; Expressive language disorder; dd2 Hypercholesterolemia; Hypertensive disorder; Hypothyroidism; Osteoporosis; restless leg syndrome; CVA (restless leg syndrome); - PSHx: 19:58 None; dd2 - Immunization history:: Adult Immunizations up to date. - Infectious Disease History:: Denies. - Social history:: Smoking status: Patient denies any tobacco usage or history of. ROS: 19:35 Eyes: Negative for injury, pain, redness, and discharge, ENT: Negative for injury, sp3 pain, and discharge, Neck: Negative for injury, pain, and swelling, Respiratory: Negative for shortness of breath, cough, wheezing, and pleuritic chest pain, Abdomen/GI: Negative for abdominal pain, nausea, vomiting, diarrhea, and constipation, Back: Negative for injury and pain, Skin: Negative for injury, rash, and discoloration, 19:35 Unable to obtain ROS due to baseline dementia, Exam: 19:37 Constitutional: This is a well developed, well nourished patient who is awake, alert, sp3 and in no acute distress. Head/Face: Normocephalic, atraumatic. Eyes: Pupils equal round and reactive to light, extra-ocular motions intact. Lids and lashes normal. Conjunctiva and sclera are non-icteric and not injected. Cornea within normal limits. Periorbital areas with no swelling, redness, or edema. Neck: Trachea midline, no thyromegaly or masses palpated, and no cervical lymphadenopathy. Supple, full range of motion without nuchal rigidity, or vertebral point tenderness. No Meningismus. Chest/axilla: Normal chest wall appearance and motion. Nontender with no deformity. No lesions are appreciated. Cardiovascular: Regular rate and rhythm with a normal S1 and S2. No gallops, murmurs, or rubs. Normal PMI, no JVD. No pulse deficits. Respiratory: Lungs have equal breath sounds bilaterally, clear to auscultation and percussion. No rales, rhonchi or wheezes noted. No increased work of breathing, no retractions or nasal flaring. Abdomen/GI: Soft, non-tender, with normal bowel sounds. No distension or tympany. No guarding or rebound. No evidence of tenderness throughout. Skin: Warm, dry with normal turgor. Normal color with no rashes, no lesions, and no evidence of cellulitis. MS/ Extremity: Pulses equal, no cyanosis. Neurovascular intact. Full, normal range of motion. 19:37 Neuro: Grossly no focal deficits weakness goldberg. Patient moves all extremities. Unable to communicate truly. Pupils equal round reactive light., Vital Signs: 19:54 BP 186 / 84; Pulse 72; Resp 16; Temp 98.9; Pulse Ox 98% on 2 lpm NC; Pain 0/10; dd2 20:00 BP 171 / 69; Pulse 69; Resp 16; Pulse Ox 100% on 2 lpm NC; dd2 21:10 BP 155 / 78; Pulse 81; Resp 16; Pulse Ox 100% on 2 lpm NC; dd2 22:00 BP 156 / 69; Pulse 74; Resp 16; Pulse Ox 100% ; dd2 23:10 BP 152 / 73; Pulse 76; Resp 16; Pulse Ox 96% on R/A; dd2 01/07 00:58 BP 145 / 63; Pulse 69; Resp 16; Temp 98.2; Pulse Ox 99% on R/A; dd2 01/06 19:54 Pain Scale: Adult dd2 MDM: 01/06 19:31 Medical Screening Exam initiated sp3 19:37 Data reviewed: vital signs, nurses notes, old medical records, lab test result(s), EKG, sp3 radiologic studies. ED course: Limited history and presentation. 89-year-old female with reports of hypertension and irregular heartbeat now with normal vital signs and unknown change in mental status relative to baseline from our standpoint. Will work patient up with full cardiac workup EKG, labs, chest x-ray as well as CT scan of the head and urine analysis. Differential diagnosis includes incorrect assessment at group home, electrolyte abnormality, atrial fibrillation paroxysmal, other infection including pneumonia and/or UTI, TIA/CVA spectrum though unlikely, among others. Patient will be signed out to nighttime physician for final reevaluation, data follow-up and final disposition.. 20:58 Differential Diagnosis: CVA, electrolyte abnormality, hypoglycemia, intracranial bleed, sp4 meningitis, overdose. 21:20 ED course: EXAM: Chest Single View HISTORY: 89 years Female PALPITATIONS COMPARISON: sp4 10/13/2024 FINDINGS: LUNGS/PLEURA: Low lung volumes. This limits evaluation. No definite acute process. CARDIAC/MEDIASTINUM: The cardiac silhouette is within normal limits. UPPER ABDOMEN: No significant abnormality. BONES: No acute abnormality. LINES/TUBES/OTHER: N/A IMPRESSION: Low lung volumes which limits evaluation. No definite acute process. Could consider a standard PA and lateral. . ED course: EXAMINATION: Head Brain Wo Cont CLINICAL INDICATION: Female, 89 years old.MENTAL STATUS CHANGE TECHNIQUE: Axial CT images from the skull base to the vertex without intravenous contrast. Coronal and sagittal reformatted images were created from the data set. One or more of the following dose reduction techniques were used: Automated exposure control, adjustment of the mA and/or kV according to patient size, and/or iterative reconstruction. Unless otherwise specified, incidental findings do not require dedicated imaging follow-up. [id number]. COMPARISON: 10/13/2024 FINDINGS: INTRACRANIAL: No acute intracranial hemorrhage. No hydrocephalus. No mass effect or midline shift. Large remote left MCA territory infarct.Age advanced cerebral atrophy. Moderate to severe chronic small vessel ischemic changes. VASCULATURE: No visualized abnormalities in the arteries or dural venous sinuses. SCALP/SKULL: No calvarial fracture identified. No acute soft tissue abnormality. SINUSES: The visualized paranasal sinuses and mastoid air cells are predominantly clear. No significant mastoid fluid. IMPRESSION: No acute intracranial abnormality. Large remote left MCA territory infarct. . 01/07 00:06 Consideration of Admission/Observation Escalation of care including sp4 admission/observation considered. ED course: After careful evaluation we see no emergent medical condition present. Patient stable for discharge back to the group home. Patient does have mild hypokalemia we will provide p.o. potassium twice a day for 10 days.. 00:06 ED course: Patient will require EMS transport back to group home. sp4 01/06 19:31 Order name: Basic Metabolic Panel; Complete Time: 20:55 sp3 01/06 19:31 Order name: CBC with Diff; Complete Time: 20:55 sp3 01/06 19:31 Order name: LFT's; Complete Time: 20:55 sp3 01/06 19:31 Order name: Magnesium; Complete Time: 20:55 sp3 01/06 19:31 Order name: NT PRO-BNP; Complete Time: 20:55 sp3 01/06 19:31 Order name: PT-INR; Complete Time: 20:55 sp3 01/06 19:31 Order name: Troponin HS; Complete Time: 20:55 sp3 01/06 19:31 Order name: UAM; Complete Time: 22:32 sp3 01/06 21:21 Order name: TSH; Complete Time: 22:32 sp4 01/06 21:21 Order name: T4 Free; Complete Time: 22:32 sp4 01/06 19:31 Order name: XRAY Chest (1 view); Complete Time: 20:55 sp3 01/06 19:31 Order name: CT Head Brain wo Cont; Complete Time: 20:59 3 01/06 19:31 Order name: Cardiac monitoring; Complete Time: 20:14 3 01/06 19:31 Order name: EKG - Nurse/Tech; Complete Time: 20:14 3 01/06 19:31 Order name: IV Saline Lock; Complete Time: 20:14 3 01/06 19:31 Order name: Labs collected and sent; Complete Time: 20:14 sp3 01/06 19:31 Order name: O2 Per Protocol; Complete Time: 20:14 sp3 01/06 19:31 Order name: O2 Sat Monitoring; Complete Time: 20:14 sp3 Administered Medications: 01/06 21:58 Drug: Potassium PO Effervescent Tablet 50 mEq PO once; dissolve in 4 ounces of water or dd2 juice Route: PO; 22:28 Follow up: Response: No adverse reaction dd2 Disposition Summary: 01/06/25 22:41 Discharge Ordered Notes: Location: Home sp4 Problem: new sp4 Symptoms: have improved sp4 Condition: Stable sp4 Diagnosis - Physical debility, Hypokalemia sp4 - History of CVA, Complications of Immobilty sp4 Followup: sp4 - With: Private Physician - When: 7 - 10 days - Reason: Recheck today's complaints Discharge Instructions: - Discharge Summary Sheet sp4 - Hypokalemia sp4 Forms: - Patient Portal Instructions sp4 Prescriptions: - Potassium Chloride 10 mEq Oral capsule, extended release - take 1 tablet ORAL route every 12 hours for 10 days; 20 tablet; Refills: 0, sp4 Product Selection Permitted Signatures: Dispatcher [employer] EDGene Boo MD MD sp3 Roland Vaca MD MD sp4 FIGUEROA BEAVERS RN RN dd2 Corrections: (The following items were deleted from the chart) 19:32 19:32 BASIC METABOLIC PANEL+C.LAB.BRZ ordered. EDMS EDMS 19:32 19:32 CBC+H.LAB.BRZ ordered. EDMS EDMS 19:32 19:32 HEPATIC FUNCTION+C.LAB.BRZ ordered. EDMS EDMS 19:32 19:32 MAGNESIUM+C.LAB.BRZ ordered. EDMS EDMS 19:32 19:32 PROBNP+C.LAB.BRZ ordered. EDMS EDMS 19:32 19:32 PROTIME (+INR)+COAG.LAB.BRZ ordered. EDMS EDMS 19:32 19:32 Troponin High Sensitivity+C.LAB.BRZ ordered. EDMS EDMS 19:32 19:32 Urinalysis W/Microscopic+U.LAB.BRZ ordered. EDMS EDMS 19:32 19:32 Chest Single View+RAD.RAD.BRZ ordered. EDMS EDMS 19:32 19:32 Head Brain Wo Cont+CT.RAD.BRZ ordered. EDMS EDMS 20:00 19:58 PSHx: None; dd2 dd2
--- NOTE | 2025-01-06 22:41 | ER ---
Nurse's Notes [facility] Name: Lisa Mane Age: 89 yrs Sex: Female : 1935 Arrival Date: 01/06/2025 Time: 19:27 Bed 16 Private MD: Diagnosis: Physical debility, Hypokalemia ;History of CVA, Complications of Immobilty Presentation: 01/06 19:54 Chief complaint: EMS states: TONED OUT FOR HIGH BLOOD PRESSURE AND IRREGULAR HEART dd2 BEAT. EMS REPORTS 190/100 BP WITH SR 86 ON MONITOR EN ROUTE. Coronavirus screen: At this time, the client does not indicate any symptoms associated with coronavirus-19. Ebola Screen: No symptoms or risks identified at this time. Initial Sepsis Screen: Does the patient meet any 2 criteria? No. Patient's initial sepsis screen is negative. Does the patient have a suspected source of infection? No. Patient's initial sepsis screen is negative. Risk Assessment: Do you want to hurt yourself or someone else? Patient reports no desire to harm self or others. Onset of symptoms is unknown. Care prior to arrival: IV initiated. 20 GA, in the left antecubital area, Oxygen administered. via nasal cannula. 19:54 Method Of Arrival: EMS: [facility] dd2 19:54 Acuity: DONTE 3 dd2 Triage Assessment: 19:58 General: Appears in no apparent distress. uncomfortable, Behavior is calm, cooperative, dd2 appropriate for age. Pain: Denies pain. EENT: No deficits noted. No signs and/or symptoms were reported regarding the EENT system. Neuro: [place] Agitation-Sedation Scale (RASS): 0 - Alert and Calm Level of Consciousness is awake, alert, obeys commands, Oriented to person, place, situation, Appropriate for age. Cardiovascular: Heart tones S1 S2 present Patient's skin is warm and dry. Parent/caregiver reports patient has had HIGH BLOOD PRESSURE. Respiratory: Airway is patent Respiratory effort is even, unlabored, Respiratory pattern is regular, symmetrical. GI: No deficits noted. No signs and/or symptoms were reported involving the gastrointestinal system. Abdomen is non-distended, Bowel sounds present X 4 quads. Abd is soft and non tender X 4 quads. : No deficits noted. No signs and/or symptoms were reported regarding the genitourinary system. Derm: No deficits noted. No signs and/or symptoms reported regarding the dermatologic system. Musculoskeletal: Range of motion: limited in RT ARM. RT LEG CONTRACTION TO RT HAND. Historical: - Allergies: 19:58 No Known Allergies; dd2 - PMHx: 19:58 cognitive communication deficit; depressive disorder; Expressive language disorder; dd2 Hypercholesterolemia; Hypertensive disorder; Hypothyroidism; Osteoporosis; restless leg syndrome; CVA (restless leg syndrome); - PSHx: 19:58 None; dd2 - Immunization history:: Adult Immunizations up to date. - Infectious Disease History:: Denies. - Social history:: Smoking status: Patient denies any tobacco usage or history of. Screenin:31 [facility] ED Fall Risk Assessment (Adult) History of falling in the last 3 months, dd2 including since admission No falls in past 3 months (0 pts) Confusion or Disorientation No (0 pts) Intoxicated or Sedated No (0 pts) Impaired Gait Yes (1 pt) Mobility Assist Device Used Yes (1 pt) Altered Elimination Yes (1 pt) Score/Fall Risk Level 3 or more points = High Risk Oriented to surroundings, Maintained a safe environment, Educated pt \T\ family on fall prevention, incl call for assistance when getting out of bed, Assessed \T\ reinforced patient's understanding of fall precautions, Hourly rounding (assess needs \T\ fall precautionary measures) done, Used ambulatory aids as needed (educated on \T\ assisted with). Abuse screen: Denies threats or abuse. Denies injuries from another. Nutritional screening: No deficits noted. Tuberculosis screening: No symptoms or risk factors identified. Assessment: 20:02 Reassessment: SEE TRIAGE ASSESSMENT FOR FULL ASSESSMENT. dd2 01/07 00:13 Reassessment: AWAITING EMS TRANSPORT BACK TO [facility]. dd2 Vital Signs: 01/06 19:54 BP 186 / 84; Pulse 72; Resp 16; Temp 98.9; Pulse Ox 98% on 2 lpm NC; Pain 0/10; dd2 20:00 BP 171 / 69; Pulse 69; Resp 16; Pulse Ox 100% on 2 lpm NC; dd2 21:10 BP 155 / 78; Pulse 81; Resp 16; Pulse Ox 100% on 2 lpm NC; dd2 22:00 BP 156 / 69; Pulse 74; Resp 16; Pulse Ox 100% ; dd2 23:10 BP 152 / 73; Pulse 76; Resp 16; Pulse Ox 96% on R/A; dd2 01/07 00:58 BP 145 / 63; Pulse 69; Resp 16; Temp 98.2; Pulse Ox 99% on R/A; dd2 01/06 19:54 Pain Scale: Adult dd2 ED Course: 01/06 19:31 Patient arrived in ED. sp3 19:31 Gene Acevedo MD is Attending Physician. sp3 19:46 FIGUEROA BEAVERS RN is Primary Nurse. dd2 19:58 Triage completed. dd2 19:58 Arm band placed on left wrist. Patient placed in an exam room, on a stretcher, on dd2 oxygen, on bus monitor, on pulse oximetry. 20:02 Maintain EMS IV. Dressing intact. Good blood return noted. Site clean \T\ dry. Gauge \T\ dd 2 site: 20G LAC. Flushed with 10 mL NS. 20:03 Attending Physician role handed off by Gene Acevedo MD sp4 20:03 Roland Vaca MD is Attending Physician. sp4 20:06 XRAY Chest (1 view) In Process Unspecified. EDMS 20:31 Patient has correct armband on for positive identification. Bed in low position. Call dd2 light in reach. Side rails up X2. Client placed on continuous cardiac and pulse oximetry monitoring. NIBP monitoring applied. laboratory monitor on. Door closed. Noise minimized. Warm blanket given. Pillow given. Verbal reassurance given. 20:31 Initial lab(s) drawn, by me, sent to lab. EKG done, by ED staff, reviewed by Roland Vaca MD. Oxygen administration via nasal cannula \T\ 2L/min. 20:42 CT Head Brain wo Cont In Process Unspecified. EDMS 21:39 UAM Sent. dd2 23:28 IV discontinued, intact, bleeding controlled, No redness/swelling at site. Pressure dd2 dressing applied. 01/07 01:00 No provider procedures requiring assistance completed. dd2 01:01 Provided Education on: d/c education. dd2 Administered Medications: 01/06 21:58 Drug: Potassium PO Effervescent Tablet 50 mEq PO once; dissolve in 4 ounces of water or dd2 juice Route: PO; 22:28 Follow up: Response: No adverse reaction dd2 Medication: 20:31 VIS not applicable for this client. dd2 Outcome: 22:41 Discharge ordered by . sp4 01/07 01:00 Discharged to senior care. Report called to [facility] dd2 Condition: stable Discharge instructions given to senior care, EMS, Instructed on discharge instructions, follow up and referral plans. medication usage, Demonstrated understanding of instructions, follow-up care, medications, Prescriptions given X 1, 01:02 Patient left the ED. dd2 Signatures: Dispatcher [employer] EDMS Gene Acevedo MD MD sp3 Roland Vaca MD MD sp4 FIGUEROA BEAVERS, RN RN dd2 Concha Braswell Corrections: (The following items were deleted from the chart) 01/06 20:00 19:58 PSHx: None; dd2 dd2 01/07 01:01/06 23:28 IV discontinued, intact, bleeding controlled, No redness/swelling at site. dd2 Pressure dressing applied, hw
[2025-01-07 01:19] VITALS: BP 145/63; TEMP 98.2; O2SAT 99
--- NOTE | 2025-01-09 12:10 | EKG ---
Test Date: 2025-01-06 Test Time: 20:12:45 Home Visitor: JOAN MEASUREMENT RESULTS: Intervals: Rate: 70 UT: 168 QRSD: 90 QT: 424 QTc: 457 [place]: P: 51 UT: 168 QRS: 18 T: 55 INTERPRETIVE STATEMENTS: Normal sinus rhythm Normal ECG Compared to ECG 10/13/2024 12:45:21 Atrial fibrillation no longer present Electronically Signed On 01-09-25 12:05:21 RETREAD TECHNICIAN by Martin Sifuentes
== END 2025-01-07 01:02 | disposition home or self-care (01) ==
LOC: ER 19:27
DX: E87.6 Hypokalemia (principal); R54 Age-related physical debility; G81.91 Hemiplegia, unspecified affecting right dominant side; R47.01 Aphasia; Z86.73 Personal history of transient ischemic attack (TIA), and cerebral infarction without residual deficits; I10 Essential (primary) hypertension; E03.9 Hypothyroidism, unspecified; E78.00 Pure hypercholesterolemia, unspecified
CPT/HCPCS: 36415; 70450; 71045; 80048; 80076; 81001; 83735; 83880; 84439; 84443; 84484; 85025; 85610; 93005; 99285